=== PATIENT | male | born 1995 | race American Indian/Alaskan Native ===

== ENCOUNTER 2019-08-19 00:01 | Emergency (ER) | payer BC ==
[2019-08-19 00:07] VITALS: BP 146/94
--- NOTE | 2019-08-19 00:46 | Emergency Department Report ---
ED General Adult HPI - General Chief complaint: Skin Rash Stated complaint: RASH LEFT LEG Source: patient Mode of arrival: Ambulatory Limitations: No Limitations - History of Present Illness Initial comments: Patient is a 23-year-old -[place] male with no past medical history who presents to the ED with complaint of acute onset persistent painful erythematous maculopapular vesicular blistered rashes on the left leg extending from the left thigh distally to the left knee for the last 3 days. Patient states that he has been taking [id number] medication for pain with no relief. Patient denies fever, chills, nausea, vomiting, dizziness, syncope, traumatic injury, low back, hematuria, testicular pain, penile discharge, dysuria or urinary frequency and urgency, dizziness, chest pain or shortness of breath. MD Complaint: Left leg painful blistered rash -: Sudden, days(s) (3) Location: lower extremity (left lower leg) Radiation: non-radiation Severity scale (0 -10): 7 Quality: burning, aching, sharp Consistency: constant Improves with: none Worsens with: none Associated Symptoms: denies other symptoms, rash (Erythematous maculopapular blistered vesicular rash on left leg diffusely). denies: confusion, chest pain, cough, diaphoresis, fever/chills, headaches, loss of appetite, malaise, nausea/vomiting, seizure, shortness of breath, syncope, weakness Treatments Prior to Arrival: none - Related Data Previous Rx's Medication Instructions Recorded Last Taken Type Gabapentin 300 mg PO Q12H #30 cap 08/19/19 Unknown Rx HYDROcodone/APAP 5-325 [Mitchell 1 each PO Q6HR PRN #12 tablet 08/19/19 Unknown Rx 5/325] Ibuprofen [Motrin] 600 mg PO Q8H PRN #30 tablet 08/19/19 Unknown Rx Valacyclovir HCl [Valtrex] 1,000 mg PO Q8H #30 tablet 08/19/19 Unknown Rx Allergies Allergy/AdvReac Type Severity Reaction Status Date / Time amoxicillin [From Augmentin] Allergy Rash Verified 08/19/19 00:06 clavulanic acid Allergy Rash Verified 08/19/19 00:06 [From Augmentin] ED Review of Systems ROS: Stated complaint: RASH LEFT LEG Other details as noted in HPI Constitutional: denies: chills, fever Eyes: denies: eye pain, eye discharge, vision change ENT: denies: ear pain, throat pain Respiratory: denies: cough, shortness of breath, wheezing Cardiovascular: denies: chest pain, palpitations Endocrine: no symptoms reported Gastrointestinal: denies: abdominal pain, nausea, diarrhea Genitourinary: denies: urgency, dysuria Musculoskeletal: arthralgia (Diffuse left leg pain due to erythematous blistered maculopapular vesicular rashes), myalgia, other. denies: back pain, joint swelling Skin: rash, lesions, pruritus, other (Erythematous maculopapular blistered vesicular painful rashes on the left leg) Neurological: denies: headache, weakness, paresthesias Psychiatric: denies: anxiety, depression Hematological/Lymphatic: denies: easy bleeding, easy bruising ED Past Medical Hx - Past Medical History Previous Medical History?: No - Surgical History Past Surgical History?: No - Social History Smoking Status: Current Every Day Smoker Substance Use Type: None - Medications Home Medications: Home Medications Medication Instructions Recorded Confirmed Last Taken Type Gabapentin 300 mg PO Q12H #30 cap 08/19/19 Unknown Rx HYDROcodone/APAP 5-325 [Mitchell 1 each PO Q6HR PRN #12 tablet 08/19/19 Unknown Rx 5/325] Ibuprofen [Motrin] 600 mg PO Q8H PRN #30 tablet 08/19/19 Unknown Rx Valacyclovir HCl [Valtrex] 1,000 mg PO Q8H #30 tablet 08/19/19 Unknown Rx ED Physical Exam - General Limitations: No Limitations General appearance: alert, in no apparent distress - Head Head exam: Present: atraumatic, normocephalic, normal inspection - Eye Eye exam: Present: normal appearance, PERRL, EOMI Pupils: Present: normal accommodation - ENT ENT exam: Present: normal exam, normal orophraynx, mucous membranes moist, TM's normal bilaterally, normal external ear exam - Neck Neck exam: Present: normal inspection, full ROM. Absent: tenderness, lymphadenopathy - Respiratory Respiratory exam: Present: normal lung sounds bilaterally. Absent: respiratory distress, wheezes, rales, rhonchi, chest wall tenderness, accessory muscle use, decreased breath sounds, prolonged expiratory - Cardiovascular Cardiovascular Exam: Present: regular rate, normal rhythm, normal heart sounds. Absent: systolic murmur, diastolic murmur, rubs, gallop - GI/Abdominal GI/Abdominal exam: Present: soft, normal bowel sounds. Absent: tenderness, guarding, rebound, hyperactive bowel sounds, hypoactive bowel sounds, organomegaly - Extremities Exam Extremities exam: Present: normal inspection, full ROM, tenderness (Palpable severe diffuse left leg tenderness due to erythematous maculopapular vesicular blistered rashes), normal capillary refill - Back Exam Back exam: Present: normal inspection, full ROM. Absent: tenderness, CVA tenderness (L), muscle spasm, paraspinal tenderness - Neurological Exam Neurological exam: Present: alert, oriented X3, CN II-XII intact, normal gait, reflexes normal - Psychiatric Psychiatric exam: Present: normal affect, normal mood, anxious - Skin Skin exam: Present: warm, dry, intact, rash (Diffuse left leg erythematous maculopapular vesicular blistered rashes with severe tenderness), erythema, vesicles ED Course Vital Signs 08/19/19 00:06 Temperature 99.0 F Pulse Rate 85 Respiratory 18 Rate Blood Pressure 146/94 O2 Sat by Pulse 99 Oximetry ED Medical Decision Making - Medical Decision Making This is a 23-year-old -[place] male with no past medical history who presents to the ED with complaint of acute onset persistent painful erythematous maculopapular vesicular blistered rashes on the left leg extending from the left thigh distally to the left knee for the last 3 days. Patient states that he has been taking [id number] medication for pain with no relief. In the ED, patient is alert and oriented x3 and is not in distress. Based on the patient's history and physical exam findings, patient likely has acute shingles outbreak extending from the proximal left thigh through the dermatomes over the left thigh muscles to the left knee. Patient was discharged home on antiviral valacyclovir, pain medications and advised to follow-up at the [facility] for further testing including HIV and other STDs. Patient was advised to return to the emergency department immediately if symptoms get worse. - Differential Diagnosis Shingles, cellulitis; Allergic reaction; folliculitis Critical care attestation.: If time is entered above; I have spent that time in minutes in the direct care of this critically ill patient, excluding procedure time. ED Disposition Clinical Impression: Pain of left lower extremity Shingles outbreak Qualifiers: Herpes zoster complications: without complications Qualified Code(s): B02.9 - Zoster without complications Disposition: DC- TO HOME OR SELFCARE Is pt being admited?: No Does the pt Need Aspirin: No Condition: Stable Instructions: Herpes Zoster (ED), Arthralgia (ED) Additional Instructions: Your symptoms and signs show that you have shingles outbreak on your left leg. Take medication with food, drink plenty of fluids and follow-up with your primary care physician in 5 to 7 days for reevaluation. Consider following up with the [facility] or call [facility] for further testing of HIV and other STDs. Return to the ED immediately if symptoms get worse. Prescriptions: Gabapentin 300 mg PO Q12H #30 cap Ibuprofen [Motrin] 600 mg PO Q8H PRN #30 tablet PRN Reason: Pain HYDROcodone/APAP 5-325 [Mitchell 5/325] 1 each PO Q6HR PRN #12 tablet PRN Reason: Pain Valacyclovir HCl [Valtrex] 1,000 mg PO Q8H #30 tablet Referrals: [facility] [Outside] - 3-5 Days [facility] [Provider Group] - 3-5 Days Time of Disposition: 00:42 Print Language: OCCITAN
== END 2019-08-19 01:06 | disposition home or self-care (01) ==
LOC: ED 00:01
DX: M79.605 Pain in left leg (principal); B02.9 Zoster without complications; F17.200 Nicotine dependence, unspecified, uncomplicated; Z79.1 Long term (current) use of non-steroidal anti-inflammatories (NSAID); Z79.899 Other long term (current) drug therapy; Z79.2 Long term (current) use of antibiotics; Z88.8 Allergy status to other drugs, medicaments and biological substances
CPT/HCPCS: 99282